=== PATIENT | female | born 1995 | race Caucasian/White ===

== ENCOUNTER 2019-08-03 10:07 | Emergency (ER) | payer BC ==
[~2019-08-03] VITALS: Ht 162.6 cm; Wt 86.2 kg
[2019-08-03 10:25] LABS: URINE BILIRUBIN NEGATIVE (Negative); URINE BLOOD 1+ (Negative); URINE CLARITY CLEAR; URINE COLOR YELLOW; URINE GLUCOSE-RANDOM* NEGATIVE (Negative); URINE KETONES 3+ (Negative); URINE LEUKOCYTES 1+ (Negative); URINE NITRITE NEGATIVE (Negative); URINE PROTEIN (DIPSTICK) TRACE (Negative); URINE SPECIFIC GRAVITY 1.015 (1.005-1.035); URINE UROBILINOGEN 0.2 E.U./dl (0.2-1.0)
[2019-08-03 10:38] LABS: URINE REDUCING SUBSTANCE NEGATIVE
[2019-08-03 10:39] LABS: ABSOLUTE NEUTROPHILS 13.9 thou/uL (1.4-8.2); BASOPHILS 0.3 % (0.0-2.0); EOSINOPHILS 0.2 % (0.0-3.0); HEMATOCRIT 42.1 % (37.0-47.0); LYMPHOCYTES 7.6 % (24.0-44.0); MCHC 33.2 g/dL (28.0-37.0); MCV 84.2 fL (80.0-100.0); PLATELET COUNT 269 thou/uL (150-400); POLYS 83.9 % (36.0-66.0); RDW 13.8 % (10.5-14.5); WBC 16.5 thou/uL (4.0-11.0)
[2019-08-03 10:47] LABS: CASTS None Seen /LPF (None Seen); MUCUS >6 Heavy strn/LPF (None Seen); SQUAMOUS >10 Many /LPF (0-3)
[2019-08-03 10:47] LABS: CALCIUM 9.6 mg/dL (8.5-10.1); CREATININE 0.9 mg/dL (0.6-1.0); POTASSIUM 3.4 mmol/L (3.5-5.1)
[2019-08-03 10:48] LABS: BACTERIA 1-9 Few /HPF (None Seen); CRYSTALS None Seen /LPF (None Seen); URINE RBC 0-2 Rare /HPF (0-2); URINE WBC 6-15 Few /HPF (0-5)
[2019-08-03 10:54] LABS: ALBUMIN 4.2 g/dL (3.4-5.0); TOTAL BILIRUBIN 0.6 mg/dL (<0.1-1.0); TOTAL PROTEIN 8.3 g/dL (6.4-8.2)
[2019-08-03] MEDS ORDERED: VENTOLIN HFA 1818 GM INH (10:59)
[2019-08-03] MEDS ORDERED: PEPCID20 MG PO (11:00)
[2019-08-03] MEDS ORDERED: DROSPIRENONE-E1 EACH PO (11:00)
[2019-08-03] MEDS ORDERED: ALBUTEROL2.5 MG/31 INH (11:00)
[2019-08-03] MEDS ORDERED: ALLEGRA ALLERG180 MG PO (11:01)
[2019-08-03] MEDS ORDERED: ADVAIR 250-501 EACH INH (11:01)
[2019-08-03] MEDS ORDERED: IBUPROFEN 400400 M2 PO (11:02)
[2019-08-03] MEDS ORDERED: ZOFRAN ODT4 MG PO (13:21)
[2019-08-03] MEDS ORDERED: CEFDINIR300 MG PO (13:22)
[2019-08-03 13:25] VITALS: BP 129/66
== END 2019-08-03 13:28 | disposition home or self-care (01) ==
LOC: ER 10:07
PROVIDERS: Emergency Medicine
DX: N39.0 Urinary tract infection, site not specified (principal); J45.909 Unspecified asthma, uncomplicated; Z90.89 Acquired absence of other organs; Z98.890 Other specified postprocedural states; Z88.7 Allergy status to serum and vaccine